=== PATIENT | male | born 1965 | race Caucasian/White ===

== ENCOUNTER 2019-12-23 15:59 | Emergency (ER) | payer BC, SELFPAY ==
[2019-12-23 16:02] VITALS: BP 141/81; PULSE 67; RESP 17; TEMP 37; O2SAT 98
[2019-12-23 16:17] VITALS: BP 116/70; PULSE 62
[2019-12-23 16:18] VITALS: BP 110/71; BP 111/71; PULSE 66; PULSE 71
[2019-12-23 16:22] LABS: Basophils Percent Auto 0.2 % (0.2-1.2); Eosinophils Percent Auto 0.6 % (0-4.4); Hematocrit 42.4 % (42.0-52.0); Hemoglobin 14.6 g/dL (14.0-18.0); Immature Granulocyte Absolute 0.03 K/mm3 (0.00-0.031); Immature Granulocyte Percent A 0.5 % (0-0.5); Immature Platelet Fraction Pct 2.8 % (0.9-11.2); Lymphocytes Absolute Auto 1.06 K/mm3 (0.9-3.2); Mean Corpuscular HGB Conc 34.4 g/dl (32-36); Mean Platelet Volume 10.5 fl (7.4-10.4); Monocytes Absolute Auto 0.8 K/mm3 (0.1-0.6); Monocytes Percent Auto 12.9 % (2.6-8.5); Neutrophils Absolute Auto 4.3 K/mm3 (1.3-6.7); Neutrophils Percent Auto 68.8 % (45.5-73.1); Platelet Count Result 96 k/mm3 (150-375); Red Blood Count 4.56 M/mm3 (4.6-6.20); Red Cell Distribution Width 13.2 % (11.5-14.5); White Blood Count 6.2 K/mm3 (4.5-10.0)
[2019-12-23 16:23] LABS: Add Urine Microscopic? NO; Appearance Urine Clear (Clear); Bilirubin Urine Negative (Negative); Blood Urine Negative (Negative); Color Urine Yellow (Yellow); Glucose Urine UA Negative (Negative); Ketones Urine Negative (Negative); Leukocyte Esterase Ur Negative LEU/UL (Negative); Nitrate Urine Negative (Negative); Protein Urine Negative (Negative); Specific Grav Ur 1.019 (1.001-1.035); Urobilinogen Urine Negative mg/dL (<2.0)
[2019-12-23 16:32] LABS: Alanine Aminotransferase 60 U/L (4-50); Albumin Level 4.3 g/dL (3.5-5.1); Alkaline Phosphatase 88 U/L (38-126); Aspartate Amino Transferase 61 U/L (17-59); Bilirubin,Total 1.6 mg/dL (0.2-1.3); Blood Urea Nitrogen 20 mg/dL (9-20); Calcium 9.4 mg/dL (8.4-10.2); Carbon Dioxide 27 mmol/L (22-30); Chloride 97 mmol/L (98-107); Estimated CRCL calculation 64 ml/min; Estimated Glomerular Filt Rate > 60; Glucose 94 mg/dL (75-110); Lipase 211 U/L (23-300); Potassium 3.8 mmol/L (3.4-5.0); Sodium 134 mmol/L (137-145)
[2019-12-23] MEDS: SODIUM CHLORIDE 0.9% IV 1,000 ML 999 ML IV CONT (16:45)
--- NOTE | 2019-12-23 17:58 | ED.NAVMDI ---
HPI - Nausea/Vomiting/Diarrhea General Chief complaint: Nausea/Vomiting/Diarrhea Stated complaint: I am dehydrated Time Seen by Provider: 12/23/19 16:02 Source: patient Mode of arrival: ambulatory Limitations: no limitations History of Present Illness HPI Narrative: Patient presents with chief complaint of diarrhea after eating some chicken that he felt was not cooked thoroughly last night. Patient states yesterday night he had a few episodes of vomiting accompanied by diarrhea but the vomiting has since stopped and he only has diarrhea. Patient denies any blood or mucus in the diarrhea. Patient denies any fever, chills. Patient states he was able to eat breakfast and lunch today. Patient reports a history of a heart stent, hypertension. He states he has had some stomach viruses in the past where he has came in for a liter or 2 of fluids and felt greatly improved. He denies chest pain, shortness of breath, dizziness, lethargy, weakness, localized abdominal pain or any other symptoms. Related Data Home Medications Medication Instructions Recorded Confirmed aspirin 12/23/19 atorvastatin 12/23/19 lisinopril [Zestril] 10 mg PO DAILY 12/23/19 12/23/19 metoprolol succinate PO 12/23/19 pantoprazole PO 12/23/19 ticagrelor [Brilinta] mg 12/23/19 Allergies Allergy/AdvReac Type Severity Reaction Status Date / Time Penicillins Allergy Mild Unknown Unverified 12/23/19 16:07 pseudoephedrine Allergy Mild Jittery Unverified 12/23/19 16:07 Review of Systems Review of Systems: Narrative: CONSTITUTIONAL: Denies fever, chills, or sweats. EYES: Denies visual changes, redness, or discharge. ENT: Denies rhinorrhea, congestion, sore throat, or otalgia. CARDIOVASCULAR: Denies chest pain, palpitations, or edema. RESPIRATORY: Denies cough or dyspnea. GASTROINTESTINAL: Denies abdominal pain, nausea, vomiting, reports diarrhea. GENITOURINARY: Denies dysuria or hematuria. SKIN: Denies rash or itching. MUSCULOSKELETAL: Denies back pain, joint pain, or myalgia. NEUROLOGIC: Denies headache, numbness, dizziness, or weakness. PSYCHIATRIC: Denies anxiety or depression. [facility] Past Medical History Medical History (Updated 12/23/19 @ 20:39 by Paresh Gomes PA-C) HTN (hypertension) Surgical History Surgical History (Updated 12/23/19 @ 20:39 by aPresh Gomes PA-C) Stented coronary artery Social History Social History (Updated 12/23/19 @ 20:39 by Paresh Gomes PA-C) Smoking status: Never smoker Alcohol intake: never Substance use: never Gender identity (if verbalized by the patient): Male Exam Narrative: Exam Narrative: GENERAL: Well-appearing, well-nourished, and in no acute distress. Patient smiling and talking without any signs of distress. HEAD: Normocephalic, atraumatic. EYES: PERRLA and EOMI. ENT: Nares clear, no rhinorrhea or epistaxis. Mucous membranes moist. Oropharynx without tonsillar hypertrophy exudate or other lesions. Bilateral TMs pearly juarez nonbulging NECK: Supple. No adenopathy or masses. Range of motion intact. CHEST: Clear to auscultation. No respiratory distress. No wheezes rales or rhonchi HEART: Regular rate and rhythm. No murmur heard. Normal peripheral pulses. ABDOMEN: Soft, nontender, nondistended, normal active bowel sounds. EXTREMITIES: Normal range of motion. No edema. SKIN: Warm, dry, no rash. NEURO: No focal deficits. Alert and oriented x3. PSYCH: Normal mood and affect. Course Vital Signs Vital signs: Vital Signs Temperature 98.6 F 12/23/19 16:02 Pulse Rate 67 12/23/19 16:02 Respiratory Rate 17 12/23/19 16:02 Blood Pressure 141/81 H 12/23/19 16:02 Pulse Oximetry 98 12/23/19 16:02 Temperature 98.6 F 12/23/19 16:02 Pulse Rate 65 12/23/19 18:47 Respiratory Rate 18 12/23/19 18:47 Blood Pressure 98/57 L 12/23/19 18:47 Pulse Oximetry 97 12/23/19 18:47 MDM - Nausea/Vomiting/Diarrhea MDM Narrative Medical decision making narrative: Devon
[2019-12-23 18:47] VITALS: BP 98/57; PULSE 65; RESP 18; O2SAT 97
== END 2019-12-23 18:48 | disposition home or self-care (01) ==
PROVIDERS: Physician Assistant; Emergency Provider Emergency Medicine; PCP Internal Medicine
DX: K52.9 Noninfective gastroenteritis and colitis, unspecified (principal); I10 Essential (primary) hypertension; Z95.5 Presence of coronary angioplasty implant and graft
CPT/HCPCS: 36415; 80053; 81003; 83690; 85025; 85055; 96360; 99283; J7030

== ENCOUNTER 2024-12-17 14:40 | Outpatient (CLI) | payer OTHER, SELFPAY ==
--- NOTE | ~2024-12-17 | CT_ITS ---
EXAMINATION:CT diagnostic chest wo con DATE: 12/17/2024 14:55 INDICATION: Lung nodule. TECHNIQUE: Computed tomography (CT) of the chest was performed without intravenous contrast. Automate d exposure control and iterative reconstruction technique were employed. The dose-length product (DLP ) was 186.16 mGy-cm. COMPARISON: None. FINDINGS: There is a 5 mm groundglass nodule in right upper lobe. No pleural effusion. The heart size is normal. There are coronary artery calcifications. No pericardial effusion. There is hypertrophy o f left lateral segment of the liver with steatosis of the liver, consistent with cirrhosis. There are changes of prostatectomy. There is moderate splenomegaly. There are bridging endplate osteophytes at multiple levels in the spine, consistent with diffuse idiopathic skeletal hyperostosis (DISH). IMPRESSION: 1. Small lung nodule, likely benign. 2. Cirrhosis of the liver with portal venous hypertension. Reviewed, dictated and finalized at location B. [facility] [employer]
== END 2024-12-17 14:41 | disposition home or self-care (01) ==
LOC: MICIMG 14:41
PROVIDERS: PCP Internal Medicine; Visit Provider Internal Medicine
DX: R91.1 Solitary pulmonary nodule (principal); K74.60 Unspecified cirrhosis of liver; K76.6 Portal hypertension
CPT/HCPCS: 71250